=== PATIENT | male | born 1960 | race African-American/Black ===

== ENCOUNTER → 2021-12-10 12:01 | Outpatient (CLI) | payer OTHER, MEDICAID, SELFPAY ==
[2021-12-10 14:24] LABS: Alanine Aminotransferase 23 IU/L (<50); Albumin 4.7 g/dL (3.5-5.0); Albumin Globulin Ratio 1.4 (1.0-2.8); Alkaline Phosphatase 77 U/L (38-126); Aspartate Aminotransferase 27 IU/L (17-59); BUN Creatinine Ratio 15.1 (6-22); Bilirubin Total 0.5 mg/dL (0.2-1.3); Blood Urea Nitrogen 19 mg/dL (9-20); Calcium 9.8 mg/dL (8.4-10.2); Carbon Dioxide 31 mmol/L (22-32); Chloride 103 mmol/L (98-107); Cholesterol 217 mg/dL (140-199); Estimated Glomerular Filt Rate 57.8 mL/min (>60); Globulin 3.4 g/dL (1.7-4.1); Glucose 104 mg/dL (80-110); HDL Cholesterol 53 mg/dL (40-60); HEMOLYSIS < 15 (0-50); LDL Cholesterol Calculated 143 mg/dL (<100); Potassium 4.2 mmol/L (3.4-5.1); Sodium 140 mmol/L (137-145); Total Protein 8.1 g/dL (6.3-8.2); Triglycerides 103 mg/dL (35-150)
[2021-12-10 14:36] LABS: Free T4, Direct Thyroxine 1.73 ng/dL (0.78-2.19)
[2021-12-10 14:50] LABS: Prostate Specific Antigen Scrn 1.84 ng/mL (0.1-4.0); Thyroid Stimulating Hormone 0.986 uIU/mL (0.47-4.68)
== END ==
PROVIDERS: PCP Internal Medicine; Referring Provider Internal Medicine; Visit Provider Internal Medicine
DX: I10 Essential (primary) hypertension (principal); E03.9 Hypothyroidism, unspecified; Z12.5 Encounter for screening for malignant neoplasm of prostate
CPT/HCPCS: 36415; 80053; 80061; 84439; 84443; G0103

== ENCOUNTER → 2022-01-07 09:46 | Outpatient (CLI) | payer OTHER, MEDICAID, SELFPAY ==
--- NOTE | 2022-01-07 09:48 | DI.ECHO.S_ITS ---
[place] [facility]---------+ [facility] +---------+ : : [address] : [address] : : : : [id number] : : : : Phone: [phone]---------+ Echocardiogram Report + + :Name: UVALDO VELAZCO Study Date: 01/07/2022 Height: 70 in : :[facility] ReadingLocation: Weight: 175 lb : : Gender: Male BSA: 2.0 m2 : :: 1960 Age: 61 yrs BP: 156/90 mmHg: :Reason For Study: VALVE DISORDER : : Performed By: Jessica Barrera : :Referring: CLAYTON HUERTAS R : + + Interpretation Summary The ejection fraction is estimated to be 60-65%. Diastolic function could not be accurately assessed due to unobtainable data. The right ventricle is normal in size, thickness and function. The right ventricular systolic function is normal. The right atrium is mildly dilated. No significant valvular abnormalities. Pulmonary artery pressures cannot be estimated. Procedure: A two-dimensional transthoracic echocardiogram with color flow and Doppler was performed. The study quality was technically adequate. There is no prior echocardiogram noted for this patient. The patient was in normal sinus rhythm during the exam. Left Ventricle: Proximal septal thickening is noted. The left ventricle appears normal in size, wall thickness, and systolic function without any focal wall motion abnormalities. The ejection fraction is estimated to be 60- 65%. Septal motion is consistent with conduction abnormality. Diastolic function could not be accurately assessed due to unobtainable data. Right Ventricle: The right ventricle is normal in size, thickness and function. The right ventricular systolic function is normal. Atria: The left atrial size is normal. The right atrium is mildly dilated. There is no Doppler evidence for an interatrial shunt. Mitral Valve: The mitral valve is normal in structure and function. There is trace mitral regurgitation. Aortic Valve: The aortic valve is trileaflet. There is no aortic valve stenosis. No aortic regurgitation is present. Tricuspid Valve: There has been no significant change since the previous study. There is a trace or physiologic amount of tricuspid regurgitation. Pulmonary artery pressures cannot be estimated because of the lack of a measurable TR jet velocity but the IVC suggests a CVP of around 8 mmHg. Pulmonic Valve: The pulmonic valve is normal in structure and function. There is a trace or physiologic amount of pulmonic regurgitation. Great Vessels: The aortic root is not well visualized. The ascending aorta is normal in size. The aortic arch is normal in size. The pulmonary artery is normal size. The IVC is dilated (diameter is greater than 2.1 cm) yet it collapses greater than 50% with a sniff. This suggests a right atrial pressure of 8 mm Hg. Pericardium/ Pleura There is no pericardial effusion. There is no pleural effusion. MMode/2D Measurements & Calculations LVIDd: 4.3 cm LVOT diam: 2.4 cm LVIDs: 3.2 cm Ao root diam: 3.7 cm FS: 26.5 % asc Aorta Diam: 3.5 cm IVSd: 0.76 cm Ao Arch Diam (Prox Trans): 2.9 cm LVPWd: 0.96 cm LV ruby. diameter/BSA (cm/m^2): 2.2 LV sys. diameter/BSA (cm/m^2): 1.6 LA A2 area: 16.7 cm2 RA long axis: 5.6 cm LA A4 area: 24.0 cm2 RA area: 25.3 cm2 LA length (vol): 6.5 cm RA vol: 97.6 ml LA vol: 52.7 ml RA : 49.5 ml/m2 LA vol index: 26.7 ml/m2 IVC diam: 2.4 cm RVD1 (basal): 4.2 cm TAPSE: 2.3 cm Doppler Measurements & Calculations Ao V2 max: 120.3 cm/sec LVOT Max Enrique: 94.0 cm/sec Ao V2 mean: 81.7 cm/sec LV V1 max P.5 mmHg Ao max P.8 mmHg LV V1 VTI: 19.9 cm Ao mean P.9 mmHg JERRI(I,D): 4.2 cm2 Ao V2 VTI: 22.2 cm JERRI(V,D): 3.7 cm2 sev ratio: 0.90 JERRI indexed to BSA (cm^2/m^2): 2.1 MV E max enrique: 47.3 cm/sec SV(LVOT): 93.2 ml MV A max enrique: 80.0 cm/sec MV E/A: 0.59 Med Peak E' Enrique: 5.4 cm/sec E/E' med: 8.7 Lat Peak E' Enrique: 8.1 cm/sec E/E' lat: 5.9 E/e' average: 7.3 Reading Physician:02:20 PM
== END ==
PROVIDERS: PCP Internal Medicine; Referring Provider Internal Medicine; Visit Provider Internal Medicine
DX: I38 Endocarditis, valve unspecified (principal)
CPT/HCPCS: 93306

== ENCOUNTER → 2022-06-14 13:22 | Outpatient (CLI) | payer OTHER, MEDICAID, SELFPAY | PROVIDERS: Family Provider Internal Medicine; PCP Internal Medicine; Referring Provider Internal Medicine; Visit Provider Internal Medicine ==

== ENCOUNTER → 2022-08-30 13:50 | Outpatient (CLI) | payer OTHER, MEDICAID, SELFPAY ==
--- NOTE | 2022-08-30 13:51 | DI.RAD.S_ITS ---
PROCEDURE: FL BARIUM SWALLOW INDICATIONS: dysphagia COMPARISON: None. FINDINGS: Function: There is normal esophageal peristalsis. No elicited gastroesophageal reflux. There is normal transit of a calibrated barium tablet through the esophagus into the stomach. Morphology: Air-contrast images demonstrate normal mucosal morphology. Single contrast views show no esophageal strictures, extrinsic mass effects, or diverticula. Limited images of the stomach demonstrate normal appearance. IMPRESSION: Normal barium swallow exam. Dictated by: Rubi Bey M.D. on 08/31/2022 at 8:15 Approved by: Rubi Bey M.D. on 08/31/2022 at 8:16
== END ==
PROVIDERS: Family Provider Internal Medicine; PCP Internal Medicine; Referring Provider Internal Medicine; Visit Provider Internal Medicine
DX: R13.10 Dysphagia, unspecified (principal)
CPT/HCPCS: 74220

== ENCOUNTER → 2023-02-02 10:45 | Outpatient (CLI) | payer OTHER, MEDICAID, SELFPAY ==
[2023-02-02 12:54] LABS: Alanine Aminotransferase 25 IU/L (<50); Albumin 4.4 g/dL (3.5-5.0); Albumin Globulin Ratio 1.1 (1.0-2.8); Alkaline Phosphatase 69 U/L (38-126); Aspartate Aminotransferase 32 IU/L (17-59); BUN Creatinine Ratio 14.8 (6-22); Bilirubin Total 0.6 mg/dL (0.2-1.3); Blood Urea Nitrogen 17 mg/dL (9-20); Calcium 9.4 mg/dL (8.4-10.2); Carbon Dioxide 30 mmol/L (22-32); Chloride 102 mmol/L (98-107); Estimated Glomerular Filt Rate > 60 mL/min (>60); Glucose 92 mg/dL (80-110); HEMOLYSIS 76 (0-50); Potassium 4.7 mmol/L (3.4-5.1); Sodium 139 mmol/L (137-145); Total Protein 8.4 g/dL (6.3-8.2)
[2023-02-02 13:03] LABS: Free T4, Direct Thyroxine 1.57 ng/dL (0.78-2.19)
[2023-02-02 13:17] LABS: Thyroid Stimulating Hormone 1.33 uIU/mL (0.47-4.68)
[2023-02-02 13:18] LABS: Prostate Specific Antigen Scrn 2.19 ng/mL (0.1-4.0)
== END ==
PROVIDERS: Family Provider Internal Medicine; PCP Internal Medicine; Referring Provider Internal Medicine; Visit Provider Internal Medicine
DX: E03.9 Hypothyroidism, unspecified (principal); I10 Essential (primary) hypertension; N18.31 Chronic kidney disease, stage 3a; Z12.5 Encounter for screening for malignant neoplasm of prostate
CPT/HCPCS: 36415; 80053; 84439; 84443; G0103

== ENCOUNTER → 2024-01-05 14:43 | Outpatient (CLI) | payer MEDICARE, SELFPAY ==
--- NOTE | 2024-01-05 14:47 | DI.RAD.S_ITS ---
PROCEDURE: XR CHEST 2V INDICATIONS: cough, right arm sx TECHNIQUE: 2 views of the chest were acquired. COMPARISON: None. FINDINGS: Surgical changes and devices: None. Lungs and pleura: Lungs are clear, aside from relatively dense nodular opacity projected over the right upper lobe. No pleural effusions or pneumothorax. Mediastinum: Mediastinal contours are normal. Heart size is normal. Bones and chest wall: No suspicious bony abnormalities. Soft tissues appear unremarkable. IMPRESSION: Relatively dense 1 cm nodular opacity seen only on the AP view projected over the right upper lobe which may represent a calcified granuloma. Recommend comparison with remote chest imaging if available and if not, follow-up plain film in 3 months is recommended. Dictated by: Denzel Hicks [facility] Interpreted: Rubi Bey MD on 01/05/2024 at 15:35 Transcribed by: JONATHAN on 01/05/2024 at 15:36 Approved by: Rubi Bey M.D. on 01/05/2024 at 17:09
[2024-01-05 16:35] LABS: Alanine Aminotransferase 21 IU/L (<50); Albumin 4.4 g/dL (3.5-5.0); Albumin Globulin Ratio 1.3 (1.0-2.8); Alkaline Phosphatase 74 U/L (38-126); Aspartate Aminotransferase 29 IU/L (17-59); BUN Creatinine Ratio 11.4 (6-22); Bilirubin Total 0.4 mg/dL (0.2-1.3); Blood Urea Nitrogen 15 mg/dL (9-20); Calcium 9.6 mg/dL (8.4-10.2); Carbon Dioxide 28 mmol/L (22-32); Chloride 106 mmol/L (98-107); Estimated Glomerular Filt Rate 60 mL/min (>60); Globulin 3.5 g/dL (1.7-4.1); Glucose 95 mg/dL (80-110); HEMOLYSIS < 15 (0-50); Potassium 4.6 mmol/L (3.4-5.1); Sodium 142 mmol/L (137-145); Total Protein 7.9 g/dL (6.3-8.2)
[2024-01-05 16:49] LABS: Free T4, Direct Thyroxine 1.88 ng/dL (0.78-2.19)
[2024-01-05 17:03] LABS: Thyroid Stimulating Hormone 0.173 uIU/mL (0.47-4.68)
== END ==
PROVIDERS: Family Provider Internal Medicine; PCP Internal Medicine; Referring Provider Internal Medicine; Visit Provider Internal Medicine
DX: I12.9 Hypertensive chronic kidney disease with stage 1 through stage 4 chronic kidney disease, or unspecified chronic kidney disease (principal); N18.31 Chronic kidney disease, stage 3a; R05.9 Cough, unspecified; E03.9 Hypothyroidism, unspecified
CPT/HCPCS: 36415; 71046; 80053; 84439; 84443

== ENCOUNTER → 2024-01-14 10:43 | Outpatient (CLI) | payer MEDICARE, SELFPAY ==
--- NOTE | 2024-01-14 10:44 | DI.CT.S_ITS ---
PROCEDURE: CT CHEST ABD PEL W CON INDICATIONS: eval/tx right upper lobe granuloma TECHNIQUE: After the administration of intravenous contrast, 5 mm thick sections acquired from the lung apices to the symphysis. 5 mm coronal and sagittal reformats were performed, with additional 7 mm MIP reformats through the lungs. For radiation dose reduction, the following was used: automated exposure control, adjustment of mA and/or kV according to patient size. COMPARISON: [facility], CR, XR CHEST 2V, 01/05/2024, 14:11. FINDINGS: Image quality: Excellent. CHEST: Lower Neck: No enlarged lymph nodes. Thyroid: No thyroid nodules which require sonographic follow up, per consensus guidelines. Axillae: No enlarged lymph nodes. Chest Wall: Unremarkable. Lungs and Pleura: No pneumothorax or pleural effusions. No consolidation or suspicious nodules. No calcified nodules are identified. Heart: Heart size is normal. No pericardial effusion. Thoracic Vessels: The aorta and pulmonary arteries demonstrate normal size. Mediastinum and Glory: No enlarged lymph nodes. Esophagus: No wall thickening. No hiatal hernia. ABDOMEN: Liver: No solid mass. Liver is enlarged measuring 19 cm with steatosis. Punctate low-attenuation foci are present predominantly in the right lobe the largest measuring 4 mm. Gallbladder: No radiopaque gallstones or wall thickening. Biliary ducts: No biliary dilation. Pancreas: No ductal dilation. Spleen: Size is within normal limits. Adrenal Glands: No adrenal nodules. Kidneys and Ureters: No hydronephrosis. No solid mass. No complex renal cystic lesion which requires follow up. 5 mm calcification is present the superior left renal pole Hounsfield units 432. Foci decreased attenuation is present within the left kidney the largest measuring 1.6 cm. Stomach and Bowel: Normal colonic caliber, without significant wall thickening. Scattered diverticula inflammatory change. Peritoneum: No abnormal intraperitoneal fluid. No free air. Ventral Wall: Small fat containing ventral hernia. Abdominal Nodes: No retroperitoneal or mesenteric adenopathy by size criteria. Vessels: Aorta and inferior vena cava are normal in size. PELVIS: Pelvic Organs: Unremarkable. Bladder: No bladder wall thickening, accounting for underdistention. Pelvic Nodes: No enlarged lymph nodes. Miscellaneous: No inguinal hernias are seen. Bones: No aggressive osseous abnormality. Area questionable calcified granuloma overlying the right upper lobe on chest x-ray appears to correspond to overlapping areas calcification the ribs with osteophyte formation. IMPRESSION: No visualized calcified granuloma corresponding to abnormality. It is felt to rather represent areas of overlapping osseous structures with osteophyte formation. Dictated by: Ines Breen M.D. on 01/14/2024 at 17:47 Approved by: Ines Breen M.D. on 01/14/2024 at 18:08
== END ==
LOC: CT 10:43
PROVIDERS: Family Provider Internal Medicine; PCP Internal Medicine; Referring Provider Internal Medicine; Visit Provider Internal Medicine
DX: G54.0 Brachial plexus disorders (principal); K76.0 Fatty (change of) liver, not elsewhere classified; N20.0 Calculus of kidney; K57.90 Diverticulosis of intestine, part unspecified, without perforation or abscess without bleeding; K43.9 Ventral hernia without obstruction or gangrene
CPT/HCPCS: 71260; 74177; Q9967

== ENCOUNTER → 2024-03-28 10:42 | Outpatient (CLI) | payer MEDICARE, SELFPAY | LOC: PHYS 10:43 | PROVIDERS: Family Provider Internal Medicine; PCP Internal Medicine; Referring Provider Internal Medicine; Visit Provider Internal Medicine | DX: R20.0 Anesthesia of skin (principal); R20.2 Paresthesia of skin | CPT/HCPCS: 95886; 95909 ==

== ENCOUNTER → 2025-07-04 09:32 | Outpatient (CLI) | payer MEDICARE, SELFPAY ==
--- NOTE | 2025-07-04 09:34 | DI.RAD.S_ITS ---
PROCEDURE: XR CHEST 2V INDICATIONS: hiccups TECHNIQUE: 2 views of the chest were acquired. COMPARISON: [facility], CR, XR CHEST 2V, 01/05/2024, 14:11. FINDINGS: Surgical changes and devices: None. Lungs and pleura: Mild diffuse interstitial prominence. Unchanged 1 cm nodule in the right upper lobe, stable from prior CXR dated 01/05/2024. Lungs are otherwise clear. No pleural effusions or pneumothorax. Mediastinum: Mediastinal contours are normal. Heart size is normal. Bones and chest wall: No suspicious bony abnormalities. Soft tissues appear unremarkable. IMPRESSION: Mild diffuse interstitial prominence suggestive of mild interstitial pulmonary edema. Dictated by: Yemi Izaugirre M.D. on 07/06/2025 at 22:31 Approved by: Yemi Izaguirre M.D. on 07/06/2025 at 22:35
[2025-07-04 11:34] LABS: Add Manual Diff / Slide Review NO; Hematocrit 42.8 % (41-53); Hemoglobin 14.1 g/dL (13.5-17.5); Lymphocytes Absolute Auto 1900 /uL (1100-4500); Mean Corpuscular HGB Conc 33.0 % (30-36); Mean Corpuscular Hemoglobin 27.1 PG (26-34); Mean Corpuscular Volume 82.0 fL (80-100); Platelet Count 307 X10^3/uL (150-400)
[2025-07-04 12:10] LABS: Alanine Aminotransferase 26 IU/L (<50); Albumin 4.6 g/dL (3.5-5.0); Albumin Globulin Ratio 1.5 (1.0-2.8); Alkaline Phosphatase 82 U/L (38-126); Blood Urea Nitrogen 18 mg/dL (9-20); Calcium 9.8 mg/dL (8.4-10.2); Carbon Dioxide 29 mmol/L (22-32); Chloride 99 mmol/L (98-107); Cholesterol 219 mg/dL (140-199); Estimated Glomerular Filt Rate > 60 mL/min (>60); Globulin 3.1 g/dL (1.7-4.1); Glucose 103 mg/dL (70-99); HDL Cholesterol 50 mg/dL (40-60); HEMOLYSIS < 15 (0-50); Potassium 4.5 mmol/L (3.4-5.1); Sodium 138 mmol/L (137-145); Total Protein 7.7 g/dL (6.3-8.2); Triglycerides 104 mg/dL (35-150)
[2025-07-04 12:19] LABS: Free T4, Direct Thyroxine 1.32 ng/dL (0.78-2.19)
[2025-07-04 12:33] LABS: Thyroid Stimulating Hormone 0.786 uIU/mL (0.47-4.68)
== END ==
PROVIDERS: Family Provider Internal Medicine; PCP Internal Medicine; Referring Provider Internal Medicine; Visit Provider Internal Medicine
DX: I12.9 Hypertensive chronic kidney disease with stage 1 through stage 4 chronic kidney disease, or unspecified chronic kidney disease (principal); N18.31 Chronic kidney disease, stage 3a; R06.6 Hiccough; E03.9 Hypothyroidism, unspecified; Z12.5 Encounter for screening for malignant neoplasm of prostate
CPT/HCPCS: 36415; 71046; 80053; 80061; 84439; 84443; 85025; G0103